=== PATIENT | male | born 1980 | race African-American/Black ===

== ENCOUNTER 2021-06-02 08:39 | Observation (INO) | payer BC, SELFPAY ==
[2021-06-02] VITALS (9 sets, daily range): BP systolic 170–225; BP diastolic 89–132; PULSE 70–118; RESP 16–24; TEMP 36.4–37.1; O2SAT 98–100; BMI 36.7
--- NOTE | ~2021-06-02 | US_ITS ---
EXAMINATION: US retroperitoneal duplex ltd DATE: 06/05/2021 10:05 INDICATION: hypertension TECHNIQUE: Multiple grayscale, color Doppler, and pulsed Doppler images of the kidneys and renal jaron ceferino were obtained. COMPARISON: None. FINDINGS: The aorta peak systolic velocity is 47 cm/s. The right renal artery peak systolic velocity is 166 cm/ s in the proximal segment, 130 cm/s in the mid segment, and 135 cm/s in the distal segment. The left renal artery peak systolic velocity is 77 cm/s in the proximal segment, 75 cm/s in the mid segment, a nd 63 cm/s in the distal segment. IMPRESSION: 1. No Doppler evidence of renal artery stenosis. Reviewed, dictated and finalized at location A.
--- NOTE | ~2021-06-02 | XR_ITS ---
EXAMINATION: XR chest 2V DATE: 06/03/2021 13:21 INDICATION: Hypertension. Smoker. TECHNIQUE: Frontal and lateral views of the chest were obtained. COMPARISON: None. FINDINGS: The chest demonstrates clear lungs without pneumonia, pleural effusion, or pneumothorax. Th e heart size is normal. IMPRESSION: 1. No acute cardiopulmonary disease. Reviewed, dictated and finalized at location A.
--- NOTE | ~2021-06-02 | US_ITS ---
EXAMINATION: US thyroid DATE: 06/04/2021 09:53 INDICATION: Elevated parathyroid hormone level TECHNIQUE: Multiple ultrasound images of the thyroid were obtained. COMPARISON: None. FINDINGS: The right thyroid lobe measures 4.7 x 2.1 x 2.0 cm. The left thyroid lobe measures 5.2 x 2.0 x 2.1 c m. The thyroid isthmus measures 6 mm in thickness. 1.5 cm wider than tall solid isoechoic nodule with ill-defined margins and without echogenic foci (TI-RADS 3, mildly suspicious , FNA if >=2.5 cm, alina al followup is >=1.5 cm) in the inferior left thyroid lobe. There is coarsened echotexture throughout the thyroid. IMPRESSION: 1. 1.5 cm TI RADS 3 nodule at the inferior left thyroid lobe for which annual ultrasound follow-up is recommended. Although not meeting TI RADS criteria for biopsy to assess for thyroid malignancy, give n the concern for parathyroid adenoma could consider ultrasound-guided biopsy. Reviewed, dictated and finalized at location A. IMPRESSION: 1. 1.5 cm TI RADS 3 nodule at the inferior left thyroid lobe for which annual u ltrasound follow-up is recommended. Although not meeting TI RADS criteria for b iopsy to assess for thyroid malignancy, given the concern for parathyroid adeno ma could consider ultrasound-guided biopsy.
--- NOTE | 2021-06-02 09:51 | ECG_ITS ---
Measurements Intervals Casey Rate: 95 P: 24 DE: 172 QRS: 21 QRSD: 118 T: 14 QT: 363 QTc: 456 Interpretive Statements SINUS RHYTHM POSSIBLE LEFT ATRIAL ENLARGEMENT INTRAVENTRICULAR CONDUCTION DELAY ST ELEVATION IN ANTERIOR LEADS- PROBABLY EARLY REPOLARIZATION ABNORMALITY BASELINE WANDER- I, II, III, AVF BORDERLINE ECG Electronically Signed On 06-02-2021 10:10:37 CDT by Austen Roach D.O.
--- NOTE | 2021-06-02 10:00 | ED.RECABL ---
HPI - Recheck/Abnormal Lab/Rx General Chief Complaint: Recheck/Abnormal Lab/Rx Stated Complaint: High Blood Pressure Time Seen by Provider: 06/02/21 09:50 Source: patient Mode of arrival: ambulatory Limitations: no limitations History of Present Illness HPI narrative: This is a 41 year old male that presents to the ER for hypertension. Reports he had hurt his finger at work and went to the nurse. They noted his blood pressure was elevated and sent him to the ER. Denies fever, vision changes, chest pain, shortness of breath, numbness, or weakness. Related Data Home Medications Medication Instructions Recorded Confirmed No Home Medications 06/02/21 06/02/21 Allergies Allergy/AdvReac Type Severity Reaction Status Date / Time lisinopril Allergy Unknown cough Verified 06/02/21 08:54 Review of Systems Review of Systems: CONSTITUTIONAL: Denies fever EYES: Denies visual changes CARDIOVASCULAR: Denies chest pain, or edema. RESPIRATORY: Denies dyspnea. NEUROLOGIC: Denies headache, numbness, or weakness. All systems reviewed & are unremarkable except as noted in HPI and below [facility] Past Medical History Medical History (Updated 06/02/21 @ 13:41 by Tashia Newman PA-C) History of hypertension Family History Family History (System 05/05/21 @ 10:25 by Tyrese Lemus) Father Family history of diabetes mellitus in first degree relative Family history of heart disease in male family member before age 55 Mother Family history of type 1 diabetes mellitus Social History Social History (System 05/05/21 @ 10:25 by Tyrese Lemus) Smoking status: Current every day smoker Smoking end date: 10/08/14 Alcohol intake: current Exam Narrative: GENERAL: Well-appearing, obese, and in no acute distress. HEAD: Normocephalic, atraumatic. EYES: EOMI. CHEST: Clear to auscultation. No respiratory distress. No wheezes rales or rhonchi HEART: Regular rate and rhythm. No murmur heard. Normal peripheral pulses. EXTREMITIES: Normal range of motion. No edema. SKIN: Warm, dry, no rash. NEURO: No focal deficits. Alert and oriented x3. PSYCH: Normal mood and affect Course Consultations Consultation #1: Spoke with hospitalist about patient and work-up who accepts admission Date: 06/02/21 Time: 13:00 Vital Signs Vital signs: Vital Signs Temperature 98.7 F 06/02/21 08:49 Pulse Rate 118 H 06/02/21 08:49 Respiratory Rate 20 06/02/21 08:49 Blood Pressure 225/125 H 06/02/21 08:49 Pulse Oximetry 100 06/02/21 08:49 Temperature 98.7 F 06/02/21 08:49 Pulse Rate 97 06/02/21 12:39 Respiratory Rate 22 H 06/02/21 12:39 Blood Pressure 177/102 H 06/02/21 13:19 Pulse Oximetry 98 06/02/21 12:39 MDM - Recheck/Abnormal Lab/Rx MDM Narrative Medical decision making narrative: Patient presents to the emergency department for elevated blood pressure. Incidentally noted at follow-up for recent finger fracture. He is asymptomatic. His blood pressure was elevated to 220 systolic on arrival. CBC and metabolic panel without concerning findings. EKG without concerning changes. Patient given 2 doses of labetalol and dose of hydralazine with improvement. Blood pressure now in the 170s to 180s systolic. Patient will be admitted for further treatment of hypertensive urgency. Spoke with hospitalist about patient and work-up who accepts admission Lab Data Attestation: I reviewed the patient's lab results. Result diagrams: 06/02/21 10:36 06/02/21 10:36 Labs: Lab Results 06/02/21 06/02/21 Range/Units 10:36 10:36 WBC 4.2 L (4.5-10.0) K/mm3 RBC 5.49 (4.6-6.20) M/mm3 Hgb 14.8 (14.0-18.0) g/dL Hct 46.6 (42.0-52.0) % MCV 84.9 (80-100) fl MCH 27.0 (26-34) pg MCHC 31.8 L (32-36) g/dl RDW 14.2 (11.5-14.5) % Plt Count 262 (150-375) k/mm3 MPV 10.9 H (7.4-10.4) fl Immature Gran % (Auto) 0.2 (0-0.5) % Neut % (Auto) 54.1 (45.5-73.1) % Lymph % (Au
[2021-06-02] MEDS: LABETALOL HCL INJ 100 MG/20 ML VIAL 20 MG IV PUSH ×2 (10:41→12:48)
[2021-06-02 11:10] LABS: Eosinophils Percent Auto 0.2 % (0-4.4); Hematocrit 46.6 % (42.0-52.0); Hemoglobin 14.8 g/dL (14.0-18.0); Immature Granulocyte Absolute 0.01 K/mm3 (0.00-0.031); Immature Granulocyte Percent A 0.2 % (0-0.5); Immature Platelet Fraction Pct 4.8 % (0.9-11.2); Lymphocytes Absolute Auto 1.48 K/mm3 (0.9-3.2); Lymphocytes Percent Auto 35.6 % (18.3-44.2); Mean Corpuscular HGB Conc 31.8 g/dl (32-36); Mean Corpuscular Volume 84.9 fl (80-100); Mean Platelet Volume 10.9 fl (7.4-10.4); Monocytes Absolute Auto 0.4 K/mm3 (0.1-0.6); Monocytes Percent Auto 8.9 % (2.6-8.5); Neutrophils Absolute Auto 2.3 K/mm3 (1.3-6.7); Neutrophils Percent Auto 54.1 % (45.5-73.1); Platelet Count Result 262 k/mm3 (150-375); Red Blood Count 5.49 M/mm3 (4.6-6.20); Red Cell Distribution Width 14.2 % (11.5-14.5); White Blood Count 4.2 K/mm3 (4.5-10.0)
[2021-06-02 11:23] LABS: Anion Gap 7 mmol/L (8-16); Blood Urea Nitrogen 11 mg/dL (9-20); Calcium 11.1 mg/dL (8.4-10.2); Carbon Dioxide 27 mmol/L (22-30); Chloride 102 mmol/L (98-107); Estimated CRCL calculation 127 ml/min; Estimated Glomerular Filt Rate > 60; Glucose 89 mg/dL (65-110); Potassium 4.3 mmol/L (3.4-5.0); Sodium 136 mmol/L (137-145)
[2021-06-02] MEDS: hydrALAZINE HCL 20 MG/ML VIAL IV PUSH (11:26)
--- NOTE | 2021-06-02 15:00 | PC.NURSE ---
This patient, Jhon Hess, was admitted to Medical Room 240-. Patient/family oriented to hospital policies and general routines including ID bracelet, bed and alarms, visiting hours, pain management, procedures, bathroom and other care routines, personal items, smoking policy, room service/diet, and visiting hours. Information on how to activate the Rapid Response Team has been discussed. Patient/Family are encouraged to report perceived risks to care and to ask questions if they do not understand what they are told or what they should do.
--- NOTE | 2021-06-02 15:15 | PM.IMHP ---
H&P: HPI History of Present Illness Date/Time: 06/02/21 15:15 this is a 41-year-old male patient who has a past medical history of having hypertension. The patient stated it has been a couple years since he has seen his primary care doctor and for unknown reasons stop taking his blood pressure medication many years ago. The patient stated that he broke his left middle finger at work several weeks ago and that he went to the nurse at his place of employment when she noticed that his blood pressure was elevated so she sent him to the emergency room. The patient did not have any complaints of any headache or blurred vision. The patient does not monitor his blood pressure at home. Patient's initial blood pressure was reported as 207/132. The patient was given labetalol x2 and hydralazine 1 time in the emergency room. This brought his blood pressure down to 177/102. The patient is being admitted for observation status on the date of service of 06/02/2021. Chief Complaint: Hypertensive urgency Review of Systems Review of Systems: All systems reviewed & are unremarkable except as noted in HPI and below Constitutional: Constitutional: Reports as per HPI and Reports no additional constitutional complaints Eyes: Eyes: Reports as per HPI and Reports no additional eye complaints ENT: Reports system reviewed and no additional complaints, except as documented and Reports Normal hearing present Cardiovascular: Cardiovascular: Reports no additional cardiovascular complaints Respiratory: Respiratory: Reports no additional respiratory complaints and Reports no additional respiratory complaints Gastrointestinal: Gastrointestinal: Reports as per HPI and Reports no additional gastrointestinal complaints Musculoskeletal: Musculoskeletal: Reports no additional musculoskeletal complaints Integumentary/Breasts: Skin/Breast: Reports system reviewed and no additional complaints, except as docu and Reports as per HPI Neurologic: Reports system reviewed and no additional complaints, except as documented, Reports as per HPI and Reports Normal hearing present Psychiatric: Psychiatric: Reports no additional psychiatric complaints and Reports as per HPI Endocrine: Endocrine: Reports no additional endocrine complaints Hematologic/Lymphatic: Hematologic/Lymphatic: Reports no additional hematologic/lymphatic complaints Allergic/Immunologic: Allergic/Immunologic: Reports no additional allergic/immunologic complaints [facility] Past Medical History Medical History (Updated 06/02/21 @ 15:36 by Violet Barksdale NP) History of hypertension Surgical History Surgical History No pertinent past surgical history Family History Family History Father Family history of diabetes mellitus in first degree relative Family history of heart disease in male family member before age 55 Mother Family history of type 1 diabetes mellitus Social History Social History (Updated 06/02/21 @ 15:31 by Violet Barksdale NP) Social History: The patient has 2 children and he works at [employer]. He prefers that his aunt be the durable power erisa attorney for healthcare. The patient is down to half a pack a cigarettes a day from 1 and half pack a cigarettes a day. The patient denies any marijuana or illicit drug use. The patient uses alcohol socially on the weekends. The patient desires to be a full code. Smoking status: Current every day smoker Smoking end date: 10/08/14 Alcohol intake: current Meds Home Medications and Allergies Home Medications Medication Instructions Recorded Confirmed Type No Home Medications 06/02/21 06/02/21 History Allergies Allergy/AdvReac Type Severity Reaction Status Date / Time lisinopril Allergy Unknown cough Verified 06/02/21 08:54 Vital Signs Vital Signs - 24 hr 06/02/21 08:49 06/02/21 10:50 06/02/21 11:
[2021-06-02] MEDS: hydrALAZINE HCL 20 MG/ML VIAL 10 MG IV PUSH ×2 (17:06→22:46)
[2021-06-02] MEDS: ENOXAPARIN 40 MG/0.4 ML SYRINGE SUB-Q (17:07)
[2021-06-03] VITALS (12 sets, daily range): BP systolic 176–230; BP diastolic 95–124; PULSE 71–92; RESP 16–18; TEMP 36.3–36.6; O2SAT 100
[2021-06-03] MEDS: LOSARTAN POTASSIUM 25 MG TABLET PO (00:24)
[2021-06-03] MEDS: hydrALAZINE HCL 20 MG/ML VIAL 10 MG IV PUSH ×2 (04:14→21:31)
[2021-06-03 05:57] LABS: Basophils Percent Auto 0.2 % (0.2-1.2); Eosinophils Percent Auto 0.9 % (0-4.4); Hematocrit 41.9 % (42.0-52.0); Hemoglobin 13.8 g/dL (14.0-18.0); Immature Granulocyte Absolute 0.01 K/mm3 (0.00-0.031); Immature Granulocyte Percent A 0.2 % (0-0.5); Lymphocytes Absolute Auto 2.13 K/mm3 (0.9-3.2); Lymphocytes Percent Auto 46.2 % (18.3-44.2); Mean Corpuscular HGB Conc 32.9 g/dl (32-36); Mean Corpuscular Hemoglobin 26.8 pg (26-34); Mean Corpuscular Volume 81.5 fl (80-100); Mean Platelet Volume 10.5 fl (7.4-10.4); Monocytes Absolute Auto 0.4 K/mm3 (0.1-0.6); Monocytes Percent Auto 8.2 % (2.6-8.5); Neutrophils Percent Auto 44.3 % (45.5-73.1); Platelet Count Result 285 k/mm3 (150-375); Red Blood Count 5.14 M/mm3 (4.6-6.20); White Blood Count 4.6 K/mm3 (4.5-10.0)
[2021-06-03 06:11] LABS: Alanine Aminotransferase 48 U/L (4-50); Albumin Level 4.1 g/dL (3.5-5.1); Alkaline Phosphatase 77 U/L (38-126); Anion Gap 7 mmol/L (8-16); Aspartate Amino Transferase 28 U/L (17-59); Bilirubin,Total 0.9 mg/dL (0.2-1.3); Blood Urea Nitrogen 8 mg/dL (9-20); Calcium 11.3 mg/dL (8.4-10.2); Carbon Dioxide 26 mmol/L (22-30); Chloride 99 mmol/L (98-107); Estimated CRCL calculation 142 ml/min; Estimated Glomerular Filt Rate > 60; Glucose 101 mg/dL (65-110); Magnesium 1.9 mg/dL (1.6-2.3); Potassium 3.5 mmol/L (3.4-5.0); Sodium 132 mmol/L (137-145)
[2021-06-03] MEDS: LABETALOL HCL INJ 100 MG/20 ML VIAL 20 MG IV PUSH ×2 (06:28→23:55)
[2021-06-03] MEDS: LOSARTAN POTASSIUM 50 MG TABLET PO ×2 (09:06→16:36)
[2021-06-03] MEDS: hydroCHLOROthiazide 25 MG TABLET PO (09:06)
[2021-06-03] MEDS: NIFEdipine 30 MG TAB.ER.24 PO ×2 (09:06→16:37)
[2021-06-03] MEDS: NICOTINE (*PBKC) 21 MG PATCH 1 PATCH TRANSDERM (10:58)
--- NOTE | 2021-06-03 13:14 | PC.NURSE ---
This patient, Jhon Hess, was transferred to [ Xray] on 06/03/21 at 1314.
[2021-06-03 13:37] LABS: Parathyroid Intact 195.6 pg/mL (7.5-53.5)
--- NOTE | 2021-06-03 13:42 | PC.NURSE ---
This patient, Jhon Hess, was received from [ Xray] on 06/03/21 at 1342.
[2021-06-03] MEDS: ENOXAPARIN 40 MG/0.4 ML SYRINGE SUB-Q (16:37)
--- NOTE | 2021-06-03 17:26 | PM.IMPN ---
Progress Note: A&P Assessment and Plan (1) Hyperparathyroidism: Code(s): E21.3 - Hyperparathyroidism, unspecified Status: Acute Assessment and Plan: Calcium 11.3 PTH 195.6 TSH 2.830 Ultrasound of the thyroid tomorrow Labs in a.m. Refer to playground supervisor upon discharge (2) Hypertensive urgency: Code(s): I16.0 - Hypertensive urgency Status: Acute Assessment and Plan: Losartan and hydrochlorothiazide had previously been prescribed however patient is septic and 2 years ago Current blood pressure is 176/102 Losartan increased to 100 mg p.o. daily, hydrochlorothiazide 50 mg p.o. daily, nifedipine 60 mg p.o. daily Trend blood pressure Adjust medications as needed (3) Broken finger: Code(s): S62.609A - Fracture of unspecified phalanx of unspecified finger, initial encounter for closed fracture Status: Acute Assessment and Plan: Patient has broken is fingers several weeks ago and continues to wear a splint on the left middle finger. He only takes Motrin for discomfort. Time Spent With Patient Time with patient: Greater than 35 minutes Subjective Date/time seen: 06/03/21 07:45 Interval history: Patient is a 41-year-old male who is here for a hypertension urgency. This morning blood pressure was noted to be 230/120. Patient stated that he does not feel any different he has no headache, or any other issues noted. He did say he was tired and he was ready to go home and tired of sitting here. Tobacco patch was offered which patient stated would be great since he did have a moment where he wanted a cigarette. Education was provided about long-term goals and the need to control blood pressure. Patient stated that he was on losartan and hydrochlorothiazide at home prior to taking himself off about 2 years ago. Patient's blood pressure is getting better as medications are being titrated up. Patient denies chest pain, shortness breath, fevers, sweats, chills. It was also noted that the patient had an elevated calcium and PTH. Other labs have been drawn awaiting results. Will have patient follow up with playground supervisor at [place] for further management. Review of Systems Review of Systems: All systems reviewed & are unremarkable except as noted in HPI and below Constitutional: Constitutional: Reports as per HPI Exam Const: General: cooperative, healthy appearing, comfortable, no acute distress, well developed, alert, awake and Physically active Nutritional Appearance: average body habitus and well nourished Orientation/consciousness: oriented to person, oriented to place, oriented to time and patient oriented x3 Limitations: no limitations HENMT: Head: normal to inspection, No palpable skull fracture present, normocephalic and atraumatic Ears: hearing grossly normal bilaterally and external ears normal General nose exam: Normal external nose present, Normal nares present and No nasal polyps present Mouth: Yes Normal oral and palatal mucosa present Throat: posterior oropharynx normal Eyes: General: appearance normal, both eyes and all related structures Alignment and Position: alignment normal Periorbital: periorbital findings normal Eyelids: eyelids normal Pupils: Equal, round and reactive pupils present EOM: EOMs intact bilaterally Neck: Neck: normal visual inspection, full ROM, no lymphadenopathy, trachea midline and supple Thyroid: thyroid normal Carotids: normal carotid upstroke Lymphatic: no lymphadenopathy noted Chest: Chest palpation & inspection: normal inspection of the chest Resp: Effort & Inspection: normal respiratory effort Auscultation: clear to auscultation bilaterally Percussion: percussion normal Cardio: Palpation: normal PMI Rate: regular rate Rhythm: regular rhythm Heart sounds: S1 normal heart sound present and S2 normal heart sound present Peripheral pulses: Peripheral pulses 2+ throughout GI: Inspection: normal to inspectio
[2021-06-04] VITALS (17 sets, daily range): BP systolic 159–179; BP diastolic 88–110; PULSE 68–96; RESP 14–18; TEMP 36–36.7; O2SAT 100
[2021-06-04] MEDS: cloNIDine HCL 0.1 MG TABLET PO (02:20)
[2021-06-04] MEDS: hydrALAZINE HCL 20 MG/ML VIAL 10 MG IV PUSH ×2 (02:20→20:28)
[2021-06-04 06:01] LABS: Basophils Percent Auto 0.4 % (0.2-1.2); Eosinophils Percent Auto 0.6 % (0-4.4); Hematocrit 42.7 % (42.0-52.0); Hemoglobin 13.6 g/dL (14.0-18.0); Lymphocytes Absolute Auto 2.16 K/mm3 (0.9-3.2); Lymphocytes Percent Auto 46.1 % (18.3-44.2); Mean Corpuscular HGB Conc 31.9 g/dl (32-36); Mean Corpuscular Hemoglobin 26.5 pg (26-34); Mean Corpuscular Volume 83.1 fl (80-100); Mean Platelet Volume 10.3 fl (7.4-10.4); Monocytes Absolute Auto 0.3 K/mm3 (0.1-0.6); Monocytes Percent Auto 6.8 % (2.6-8.5); Neutrophils Absolute Auto 2.2 K/mm3 (1.3-6.7); Neutrophils Percent Auto 46.1 % (45.5-73.1); Platelet Count Result 265 k/mm3 (150-375); Red Blood Count 5.14 M/mm3 (4.6-6.20); White Blood Count 4.7 K/mm3 (4.5-10.0)
[2021-06-04 06:15] LABS: Alanine Aminotransferase 39 U/L (4-50); Albumin Level 4.1 g/dL (3.5-5.1); Alkaline Phosphatase 76 U/L (38-126); Anion Gap 7 mmol/L (8-16); Aspartate Amino Transferase 23 U/L (17-59); Bilirubin,Total 0.8 mg/dL (0.2-1.3); Blood Urea Nitrogen 7 mg/dL (9-20); Calcium 11.7 mg/dL (8.4-10.2); Carbon Dioxide 26 mmol/L (22-30); Chloride 101 mmol/L (98-107); Estimated CRCL calculation 142 ml/min; Estimated Glomerular Filt Rate > 60; Glucose 102 mg/dL (65-110); Lactate Dehydrogenase 292 U/L (313-618); Magnesium 2.1 mg/dL (1.6-2.3); Phosphorus 3.2 mg/dL (2.5-4.5); Potassium 3.7 mmol/L (3.4-5.0); Sodium 134 mmol/L (137-145)
[2021-06-04 07:30] LABS: Vitamin D 25 Hydroxy 16.1 ng/mL
[2021-06-04] MEDS: NIFEdipine 30 MG TAB.ER.24 90 MG PO (07:59)
[2021-06-04] MEDS: hydroCHLOROthiazide 25 MG TABLET PO (07:59)
[2021-06-04] MEDS: NICOTINE (*PBKC) 21 MG PATCH 1 PATCH TRANSDERM (08:00)
[2021-06-04] MEDS: LOSARTAN POTASSIUM 50 MG TABLET 100 MG PO (08:00)
[2021-06-04] MEDS: NIFEdipine 30 MG TAB.ER.24 PO (13:38)
[2021-06-04] MEDS: carvediloL 6.25 MG TABLET PO (13:38)
[2021-06-04] MEDS: carvediloL 12.5 MG TABLET PO (15:48)
--- NOTE | 2021-06-04 16:27 | PM.IMPN ---
Progress Note: A&P Assessment and Plan (1) Hyperparathyroidism: Code(s): E21.3 - Hyperparathyroidism, unspecified Status: Acute Assessment and Plan: Calcium 11.7 PTH 195.6 TSH 2.830 Ultrasound of the thyroid pending Labs in a.m. Refer to councillor [employer] upon discharge (2) Hypertensive urgency: Code(s): I16.0 - Hypertensive urgency Status: Acute Assessment and Plan: Losartan and hydrochlorothiazide had previously been prescribed however patient is septic and 2 years ago Current blood pressure is 172/88 Losartan increased to 100 mg p.o. daily, hydrochlorothiazide 50 mg p.o. daily changed to chloridone 25mg PO daily, nifedipine 60 mg p.o. BID, Coreg 12.5mg PO BID Nephrology consult thank you for your recommendation Will get some extra labs (Renin, Aldosterone, Random cortisol, TSH reflex, Plasma metanephrines) US of the renal vessels. Trend blood pressure Adjust medications as needed (3) Broken finger: Code(s): S62.609A - Fracture of unspecified phalanx of unspecified finger, initial encounter for closed fracture Status: Acute Assessment and Plan: Patient has broken is fingers several weeks ago and continues to wear a splint on the left middle finger. He only takes Motrin for discomfort. Subjective Date/time seen: 06/04/21 16:00 Interval history: Patient is 41 year old male here for evaluation of hypertension. Patient has no complaints and really wants to be discharged. He denies chest pain, shortness of breath, nausea, vomiting, abdominal pain, headache, fevers, sweats, or chills. At 1600 I did go and talk to the patient about his blood pressure and why I was not comfortable to discharge at this time. This patient is very young and with the max of three medications and the titration of a four is concerning for a possible secondary uncontrolled hypertension. Knowing that this is a rare instance, it is probably not secondary, but this patient has not had any relief in blood pressure with all of the medications that have been given at this time. I did consult nephrology at this time, and ordered very specific labs that were suggested to me by my attending physician. Review of Systems Review of Systems: All systems reviewed & are unremarkable except as noted in HPI and below Exam Const: General: cooperative, healthy appearing, comfortable, no acute distress, well developed, alert, awake and Physically active Nutritional Appearance: average body habitus and well nourished Orientation/consciousness: oriented to person, oriented to place, oriented to time and patient oriented x3 Limitations: no limitations HENMT: Head: normal to inspection, No palpable skull fracture present, normocephalic and atraumatic Ears: hearing grossly normal bilaterally and external ears normal General nose exam: Normal external nose present, Normal nares present and No nasal polyps present Mouth: Yes Normal oral and palatal mucosa present Throat: posterior oropharynx normal Eyes: General: appearance normal, both eyes and all related structures Alignment and Position: alignment normal Periorbital: periorbital findings normal Eyelids: eyelids normal Conjunctivae: conjunctivae normal Sclera: sclerae normal Cornea: corneas normal Pupils: Equal, round and reactive pupils present EOM: EOMs intact bilaterally Neck: Neck: normal visual inspection, full ROM, no lymphadenopathy, trachea midline and supple Thyroid: thyroid normal Carotids: normal carotid upstroke Lymphatic: no lymphadenopathy noted Chest: Chest palpation & inspection: normal inspection of the chest Resp: Effort & Inspection: normal respiratory effort Auscultation: clear to auscultation bilaterally Percussion: percussion normal Cardio: Palpation: normal PMI Rate: regular rate Rhythm: regular rhythm Heart sounds: S1 normal heart sound present and S2 normal heart sound present Peripheral pulses: Chanell
[2021-06-04] MEDS: CHLORTHALIDONE 25 MG TABLET PO (17:13)
[2021-06-04] MEDS: ENOXAPARIN 40 MG/0.4 ML SYRINGE SUB-Q (17:13)
[2021-06-05] VITALS (11 sets, daily range): BP systolic 145–172; BP diastolic 87–99; PULSE 68–89; RESP 14–18; TEMP 36.6–36.8; O2SAT 97–100
[2021-06-05] MEDS: hydrALAZINE HCL 20 MG/ML VIAL 10 MG IV PUSH (06:00)
[2021-06-05 06:12] LABS: Basophils Percent Auto 0.6 % (0.2-1.2); Eosinophils Percent Auto 0.8 % (0-4.4); Hematocrit 44.3 % (42.0-52.0); Hemoglobin 14.1 g/dL (14.0-18.0); Lymphocytes Absolute Auto 1.98 K/mm3 (0.9-3.2); Lymphocytes Percent Auto 54.7 % (18.3-44.2); Mean Corpuscular HGB Conc 31.8 g/dl (32-36); Mean Corpuscular Hemoglobin 26.8 pg (26-34); Mean Corpuscular Volume 84.1 fl (80-100); Mean Platelet Volume 10.7 fl (7.4-10.4); Monocytes Absolute Auto 0.3 K/mm3 (0.1-0.6); Monocytes Percent Auto 8.8 % (2.6-8.5); Neutrophils Absolute Auto 1.3 K/mm3 (1.3-6.7); Neutrophils Percent Auto 35.1 % (45.5-73.1); Platelet Count Result 268 k/mm3 (150-375); Red Blood Count 5.27 M/mm3 (4.6-6.20); Red Cell Distribution Width 14.1 % (11.5-14.5); White Blood Count 3.6 K/mm3 (4.5-10.0)
[2021-06-05 06:20] LABS: Alanine Aminotransferase 39 U/L (4-50); Albumin Level 4.2 g/dL (3.5-5.1); Alkaline Phosphatase 79 U/L (38-126); Anion Gap 5 mmol/L (8-16); Aspartate Amino Transferase 25 U/L (17-59); Bilirubin,Total 0.9 mg/dL (0.2-1.3); Blood Urea Nitrogen 7 mg/dL (9-20); Calcium 12.1 mg/dL (8.4-10.2); Carbon Dioxide 28 mmol/L (22-30); Chloride 101 mmol/L (98-107); Estimated CRCL calculation 142 ml/min; Estimated Glomerular Filt Rate > 60; Glucose 99 mg/dL (65-110); Magnesium 1.9 mg/dL (1.6-2.3); Sodium 134 mmol/L (137-145)
[2021-06-05] MEDS: carvediloL 25 MG TABLET PO (08:07)
[2021-06-05] MEDS: NIFEdipine 30 MG TAB.ER.24 60 MG PO (08:07)
[2021-06-05] MEDS: NICOTINE (*PBKC) 21 MG PATCH 1 PATCH TRANSDERM (08:08)
[2021-06-05] MEDS: LOSARTAN POTASSIUM 50 MG TABLET 100 MG PO (08:08)
[2021-06-05] MEDS: CHLORTHALIDONE 25 MG TABLET PO (08:08)
--- NOTE | 2021-06-05 14:17 | PM.CNNEP ---
Assessment and Plan Assessment and plan (1) Hypertension: Code(s): I10 - Essential (primary) hypertension Status: Acute Assessment and Plan: BP quite elevated on admission suspect this is due to not taking previous medications as prescribed and perhaps progression of his known hypertension cannot discount the possibility of a secondary cause renal duplex without evidence of JORGE hormone tests pending BP still elevated but better in comparison to admission suspect it may take a few more days for the recent medications additions/changes to take effect follow trend of BP readings If BP remains relatively stable/controlled, not oppose to discharge and follow-up with PCP for ongoing management but will need follow-up on pending hormone testing. He states his sister is in the medical field and can check his blood pressure at home. Will continue to follow. History of Present Illness Reason for Consult Consult date: 06/05/21 Reason for consult: accelerated hypertension Chief Complaint Chief complaint: hypertensive urgency History of Present Illness Narrative: The patient is a 41-year-old male with a past medical history as outlined below who presented to [facility] ER due to elevated blood pressure. The patient was diagnosed with hypertension in 2014 and had been on medications when this diagnosis was made. For reasons that are not entirely clear, he stopped taking his blood pressure medications several years ago and has not seen a primary care physician in that same amount of time as well. He recently broke his left middle finger at his job several weeks ago and when he went for follow up to the nurses at his place of employment she noted his blood pressure was quite significantly elevated and referred him to the emergency room. Upon presentation to the emergency room, his blood pressure was noted be in the 200 systolic and greater than 1 100s diastolic. He was given IV labetalol as well as IV hydralazine which did bring his blood pressure down into the 170 systolic range. Despite his significantly elevated blood pressure, he did not really have any symptoms with regard to palpitations, headache, blurry vision, diaphoresis, chest pain, shortness of breath, dizziness, or lightheadedness. He was subsequent admitted to the hospital for further monitoring of his blood pressure. Since his admission, his blood pressure has still been elevated but doing better than to 200 systolic on admission with reinstitution of what his home blood pressure medications were as well as the addition of several other medications as well. Despite his blood pressure still being suboptimal, he still does not have any acute issues or complaints voiced. Renal consultation was requested due to his difficult to control high blood pressure. Given the multitude of medications/agents he is currently on, there was some concern that he may have a secondary cause to his hypertension. With this in mind, he underwent a renal duplex earlier today which demonstrate he does not have any evidence of renal artery stenosis. Furthermore he has had several hormones checked including aldosterone, renin, metanephrines...etc. to rule out the possibility of a hormonal issue with regard to a pheochromocytoma, hyperaldosteronism...etc. Is difficult to say if he really has a secondary cause to his hypertension or this is just poorly controlled essential/primary hypertension that was worsened by the fact that he had stopped his medications so many years ago and it continued to rise over time. With all the recent medication changes that have been instituted, it may be as simple as that his body has not adapted to these recent medication changes and it may take several more days before we truly see the effect of his current medication regimen. As already mentioned, he continues to feel asymptomatic and has noted that his blood pressure is doing so
--- NOTE | 2021-06-05 15:00 | PM.DS ---
DS: Admitting Diagnosis Admitting Diagnosis Hypertensive urgency DS: Discharge Diagnosis Discharge Diagnosis (1) Hyperparathyroidism: Code(s): E21.3 - Hyperparathyroidism, unspecified Status: Acute Assessment and Plan: Calcium 11.3 PTH 195.6 TSH 2.830 Ultrasound of the thyroid tomorrow Labs in a.m. Refer to hair colorist upon discharge (2) Hypertensive urgency: Code(s): I16.0 - Hypertensive urgency Status: Acute Assessment and Plan: Losartan and hydrochlorothiazide had previously been prescribed however patient is septic and 2 years ago Current blood pressure is 176/102 Losartan increased to 100 mg p.o. daily, hydrochlorothiazide 50 mg p.o. daily, nifedipine 60 mg p.o. daily Trend blood pressure Adjust medications as needed (3) Broken finger: Code(s): S62.609A - Fracture of unspecified phalanx of unspecified finger, initial encounter for closed fracture Status: Acute Assessment and Plan: Patient has broken is fingers several weeks ago and continues to wear a splint on the left middle finger. He only takes Motrin for discomfort. DS: Summary Hospital Course Reason for hospitalization: Date of service 06/05/2021 at 8:00 a.m. Hospital Course: Patient is a 41-year-old male with a past medical history of hypertension who presented to the ED for hypertensive urgency. Patient was started back on his regimen that he had an taken in about 2 years. That regimen consisted of hydrochlorothiazide and losartan. However those 2 drugs alone did not help so nifedipine was also added to his regimen. Medications have been titrated up patient has been stable with no symptoms. It was also noted the patient had a high calcium and his PTH was elevated as well. Ultrasound have his thyroid showed 1.5 cm TI RADS 3 nodule at the inferior left thyroid lobe. Patient will need to follow up with Endocrinology at discharge, and will need annual ultrasound to watch the nodule. He also had a renal workup for evaluation of secondary hypertension since he has been maxed out on three different medications. Further testing has been conducted to rule out renal artery stenosis, which came back negative for stenosis. Nephrology was consulted for further recommendations. All other labs have been stable throughout the visit. LDH was noted to be high at 292 and calcium continues to increase. Today patient states he is feeling okay and denies chest pain, shortness of breath, weakness, fatigue, abdominal pain, fevers, sweats, chills. Status at Discharge Functional status at discharge: independent ambulation Overall status at discharge: patient is progressing back to baseline Time Spent with Patient Time attestation: Total time spent providing and/or coordinating discharge services: 63 minutes Time spent: Greater than 30 minutes Specific discharge activities: Lab review, chart review, documentation, physical exam, education, diagnostic testing care coordination. Exam Const: General: cooperative, healthy appearing, comfortable, no acute distress, well developed, alert, awake and Physically active Nutritional Appearance: average body habitus and well nourished Orientation/consciousness: oriented to person, oriented to place, oriented to time and patient oriented x3 Limitations: no limitations HENMT: Head: normal to inspection, No palpable skull fracture present, normocephalic and atraumatic Ears: hearing grossly normal bilaterally and external ears normal General nose exam: Normal external nose present, Normal nares present and No nasal polyps present Mouth: Yes Normal oral and palatal mucosa present Throat: posterior oropharynx normal Eyes: General: appearance normal, both eyes and all related structures Alignment and Position: alignment normal Periorbital: periorbital findings normal Eyelids: eyelids normal Conjunctivae: conjunctivae normal Sclera: sclerae normal Cornea: corneas
[2021-06-07 04:57] LABS: Ionized Calcium 6.7 mg/dL (4.8-5.6)
[2021-06-07 18:45] LABS: Angiotensin Converting Enzyme 19 U/L (9-67)
[2021-06-09 11:18] LABS: Vitamin D 1,25 (OH)2 Total 86 pg/mL (18-72); Vitamin D2 1,25 (OH)2 <8 pg/mL; Vitamin D3 1,25 (OH)2 86 pg/mL
[2021-06-09 12:05] LABS: Renin 0.52 ng/mL/h (0.25-5.82)
[2021-06-09 19:13] LABS: Metanephrine, Free 27 pg/mL (<=57); Normetanephrine, Free 142 pg/mL (<=148); Total, Free (MN + NMN) 169 pg/mL (<=205)
== END 2021-06-05 16:15 | disposition home or self-care (01) ==
LOC: ANHED 13:41 → ANH2MED 16:04
PROVIDERS: Nurse Practitioner; Physician Assistant; Admitting Provider Hospitalist; Emergency Provider Emergency Medicine; Visit Provider Internal Medicine
DX: I16.0 Hypertensive urgency (principal); S62.603D Fracture of unspecified phalanx of left middle finger, subsequent encounter for fracture with routine healing; E21.3 Hyperparathyroidism, unspecified; F17.210 Nicotine dependence, cigarettes, uncomplicated; I10 Essential (primary) hypertension; X58.XXXD Exposure to other specified factors, subsequent encounter
CPT/HCPCS: 36415; 71046; 76536; 80048; 80053; 82088; 82164; 82306; 82330; 82533; 82652; 83615; 83735; 83835; 83970; 84100; 84244; 84443; 85025; 85055; 93005; 93976; 96372; 96374; 96375; 96376; 99285; A9270; G0378; J0360; J1650